=== PATIENT | female | born 1970 | race American Indian/Alaskan Native ===

== ENCOUNTER 2017-01-18 07:42 | Outpatient (CLI) | payer BC ==
--- NOTE | 2017-01-18 10:32 | Mammography Report ---
BILATERAL MAMMOGRAM with CAD: HISTORY: Cancer screening. Comparison study is dated August 20, 2015. FINDINGS: The breast tissue is heterogeneously dense, which could obscure detection of small masses (approximately 50%-75% glandular). No mass, distortion, suspicious calcification, or skin change is seen. IMPRESSION: Negative mammogram. There is no mammographic evidence of malignancy. RECOMMENDATION: Follow-up per ACS guidelines. BI-RADS CATEGORY: 1 = Negative ACR BI-RADS MAMMOGRAPHIC CODES: 0 = Needs additional imaging evaluation; 1 = Negative; 2 = Benign; 3 = Probably benign; 4 = Suspicious; 5 = Malignant; 6 = Known biopsy-proven malignancy COMMENT: 1. Dense breast tissue, i.e., adenosis, fibrocystic changes, etc., may obscure an underlying neoplasm. 2. Approximately 10% of cancers are not detected with mammography. 3. A negative mammography report should not delay biopsy if a clinically suspicious mass is present. COMMENT: Patient follow-up letters are generated in [employer].
== END 2017-01-18 07:43 | disposition home or self-care (01) ==
LOC: MAMMO 07:42
DX: Z12.31 Encounter for screening mammogram for malignant neoplasm of breast (principal)
CPT/HCPCS: 77067; G0202

== ENCOUNTER 2017-01-21 07:18 | Outpatient (CLI) | payer BC ==
--- NOTE | 2017-01-21 08:06 | Ultrasound Report ---
ULTRASOUND RENAL BILATERAL HISTORY: Chronic kidney disease. TECHNIQUE: transabdominal ultrasound with color Doppler interrogation. FINDINGS: The right kidney measures 8.9 x 5.3 x 5.6cm. Right renal cortex: 1.0cm. The left kidney measures 9.7 x 4.8 x 5.1cm. Left renal cortex: 1.0cm. There is borderline atrophy of the kidneys. There is increased renal parenchymal echotexture bilaterally. A 1.5 cm cyst is noted in the superior right kidney. No mass. There are 2 shadowing calcifications in the left kidney suspicious for nonobstructing stones. No evidence for hydronephrosis. The views of the bladder and the region of the ureters appear normal. IMPRESSION: Mild chronic renal parenchymal disease. Simple right renal cyst. Probable nonobstructing left renal stones.
== END 2017-01-21 07:19 | disposition home or self-care (01) ==
LOC: US 07:18
PROVIDERS: ATTEND Internal Medicine Nephrology
DX: N18.3 Chronic kidney disease, stage 3 (moderate) (principal); N28.1 Cyst of kidney, acquired; N28.89 Other specified disorders of kidney and ureter
CPT/HCPCS: 76770